=== PATIENT | male | born 1930 | race Caucasian/White ===

== ENCOUNTER 2017-08-25 20:23 | Emergency (ER) | payer MEDICARE ==
[2017-08-25 20:27] VITALS: BP 171/102
[2017-08-25] MEDS ORDERED: Sodium Chloride 0.9% 10 ML Syringe FLUSH PRN (20:43)
--- NOTE | 2017-08-25 20:51 | EDM.PDOC ---
ED HPI GENERAL MEDICAL PROBLEM - General Chief Complaint: Genitourinary Problem Stated Complaint: GROIN PAIN-KILLDEER Time Seen by Provider: 08/25/17 20:34 Source of Information: Reports: Patient History Limitations: Reports: No Limitations - History of Present Illness INITIAL COMMENTS - FREE TEXT/NARRATIVE: Patient is 87-year-old male who presents to the ED complaining of pain to the suprapubic region that radiates into his left groin and down his left leg. States it started approximately 4 days ago and has progressively gotten worse. In addition developed burning sensation with urination. Increased frequency, decrease amount, and a sensation of incomplete emptying of his bladder. Pain to the left leg described as sharp in nature, constant, improved with weightbearing and ambulation. Patient has no history of back issues in the past. He has no history of peripheral vascular disease. Patient does not smoke or utilize alcohol. He does have a history of prostate cancer with prostatectomy. Denies any fever, chills, nausea/vomiting, chest pain, shortness of breath, diarrhea, constipation, increased flatulence, or any additional complaints. Past medical history includes hypertension, and prostate cancer Current medications include lisinopril. Groin Pain Score (Numeric/FACES): 6 - Related Data Allergies Allergy/AdvReac Type Severity Reaction Status Date / Time egg Allergy Swelling Verified 08/25/17 20:28 Influenza Virus Vaccines Allergy Swelling Verified 08/25/17 20:29 Milk Containing Products Allergy Swelling Verified 08/25/17 20:28 Home Meds: Home Meds Lisinopril/Hydrochlorothiazide [Lisinopril-Hctz 10-12.5 mg Tab] 1 tab PO DAILY 08/25/17 [History] Past Medical History Cardiovascular History: Reports: Hypertension Oncologic (Cancer) History: Reports: Prostate - Past Surgical History Male Surgical History: Reports: Prostatectomy Social & Family History - Family History Respiratory: Reports: Other (See Below) Other Respiratory Family Hisory: father from pneumonia Neurological: Reports: CVA - Tobacco Use Smoking Status *Q: Never Smoker Second Hand Smoke Exposure: No - Caffeine Use Caffeine Use: Reports: None - Recreational Drug Use Recreational Drug Use: No ED ROS GENERAL - Review of Systems Review Of Systems: See Below Constitutional: Denies: Fever, Chills, Decreased Appetite Respiratory: Denies: Shortness of Breath, Cough, Sputum Cardiovascular: Denies: Chest Pain, Dyspnea on Exertion, Palpitations GI/Abdominal: Reports: Abdominal Pain. Denies: Constipation, Diarrhea, Nausea, Vomiting : Reports: Dysuria, Frequency, Pain, Urgency, Urinary Retention. Denies: Discharge, Flank Pain, Hematuria Musculoskeletal: Reports: Leg Pain (left ankle and posterior calf). Denies: Back Pain Skin: Reports: No Symptoms Neurological: Reports: No Symptoms ED EXAM, GI/ABD - Physical Exam Exam: See Below Exam Limited By: No Limitations General Appearance: Alert, WD/WN, No Apparent Distress Ears: Hearing Grossly Normal Nose: Normal Inspection, Other (oral mucosa is moist) Throat/Mouth: Normal Voice, No Airway Compromise Neck: Normal Inspection, Supple Respiratory/Chest: No Respiratory Distress, Lungs Clear, Normal Breath Sounds, Chest Non-Tender Cardiovascular: Normal Peripheral Pulses, Regular Rate, Rhythm GI/Abdominal Exam: Normal Bowel Sounds, No Organomegaly, Distended, Tender ( suprapubic region) (Male) Exam: Deferred (No pain to penis and testicles) Rectal (Males) Exam: Deferred Back Exam: Normal Inspection Extremities: Normal Inspection, Normal Range of Motion, Non-Tender, No Pedal Edema, Normal Capillary Refill Neurological: Alert, Oriented, CN II-XII Intact, Normal Cognition, No Motor/ Sensory Deficits Psychiatric: Normal Affect, Normal Mood Skin Exam: Warm, Dry, Intact, Normal Color Course - Vital Signs Last Recorded V/S: Last Vital Signs Temp 97.5 F 08/25/17 20:24 Pulse 63 08/25/17 20:24 Resp 18 08/25/17 20:24 BP 171/102 H 08/25/17 20:24 Pulse Ox 99 08/25/17 20:24 - Orders/Labs/Meds Labs: Laboratory Tests 08/25/17 08/25/17 08/25/17 Range/Units 21:04 21:07 21:07 WBC 12.43 H (4.23-9.07) K/mm3 RBC 4.52 L (4.63-6.08) M/mm3 Hgb 13.5 L (13.7-17.5) gm/L Hct 39.2 L (40.1-51.0) % MCV 86.7 (79.0-92.2) fl MCH 29.9 (25.7-32.2) pg MCHC 34.4 (32.2-35.5) g/dl RDW Std Deviation 45.1 H (35.1-43.9) fL Plt Count 210 (163-337) K/mm3 MPV 9.3 L (9.4-12.3) fl Neut % (Auto) 85.1 H (34.0-67.9) % Lymph % (Auto) 7.2 L (21.8-53.1) % [place] % (Auto) 6.4 (5.3-12.2) % Eos % (Auto) 0.6 L (0.8-7.0) Baso % (Auto) 0.4 (0.1-1.2) % Neut # (Auto) 10.58 H (1.78-5.38) K/mm3 Lymph # (Auto) 0.90 L (1.32-3.57) K/mm3 Dillon # (Auto) 0.79 (0.30-0.82) K/mm3 Eos # (Auto) 0.07 (0.04-0.54) K/mm3 Baso # (Auto) 0.05 (0.01-0.08) K/mm3 Manual Slide Review Normal smear Sodium 142 (136-145) mEq/L Potassium 3.8 (3.5-5.1) mEq/L Chloride 105 (98-107) mEq/L Carbon Dioxide 25 (21-32) mEq/L Anion Gap 15.8 H (5-15) BUN 23 H (7-18) mg/dL Creatinine 1.5 H (0.7-1.3) mg/dL Est Cr Clr Drug Dosing 31.32 mL/min Estimated GFR (MDRD) 44 (>60) mL/min BUN/Creatinine Ratio 15.3 (14-18) Glucose 123 H (83-115) mg/dL Calcium 9.1 (8.5-10.1) mg/dL Total Bilirubin 0.8 (0.2-1.0) mg/dL AST 30 (15-37) U/L ALT 37 (16-63) U/L Alkaline Phosphatase 67 (46-116) U/L C-Reactive Protein 0.6 (<1.0) mg/dL Total Protein 7.2 (6.4-8.2) g/dl Albumin 3.8 (3.4-5.0) g/dl Globulin 3.4 gm/dL Albumin/Globulin Ratio 1.1 (1-2) PSA Screen (0.0-4.0) ng/mL Urine Color Yellow (Yellow) Urine Appearance Clear (Clear) Urine pH 6.0 (5.0-8.0) Ur Specific [place] 1.020 (1.005-1.030) Urine Protein Negative (Negative) Urine Glucose (UA) Negative (Negative) Urine Ketones Negative (Negative) Urine Occult Blood Trace-intact H (Negative) Urine Nitrite Negative (Negative) Urine Bilirubin Negative (Negative) Urine Urobilinogen 0.2 (0.2-1.0) Ur Leukocyte Esterase Negative (Negative) Urine RBC 0-5 (0-5) /hpf Urine WBC 0-5 (0-5) /hpf Ur Epithelial Cells Not seen (0-5) /hpf Urine Bacteria Not seen (FEW) /hpf Urine Mucus Not seen (FEW) /hpf 08/25/17 Range/Units 22:16 WBC (4.23-9.07) K/mm3 RBC (4.63-6.08) M/mm3 Hgb (13.7-17.5) gm/L Hct (40.1-51.0) % MCV (79.0-92.2) fl MCH (25.7-32.2) pg MCHC (32.2-35.5) g/dl RDW Std Deviation (35.1-43.9) fL Plt Count (163-337) K/mm3 MPV (9.4-12.3) fl Neut % (Auto) (34.0-67.9) % Lymph % (Auto) (21.8-53.1) % [place] % (Auto) (5.3-12.2) % Eos % (Auto) (0.8-7.0) Baso % (Auto) (0.1-1.2) % Neut # (Auto) (1.78-5.38) K/mm3 Lymph # (Auto) (1.32-3.57) K/mm3 Dillon # (Auto) (0.30-0.82) K/mm3 Eos # (Auto) (0.04-0.54) K/mm3 Baso # (Auto) (0.01-0.08) K/mm3 Manual Slide Review Sodium (136-145) mEq/L Potassium (3.5-5.1) mEq/L Chloride (98-107) mEq/L Carbon Dioxide (21-32) mEq/L Anion Gap (5-15) BUN (7-18) mg/dL Creatinine (0.7-1.3) mg/dL Est Cr Clr Drug Dosing mL/min Estimated GFR (MDRD) (>60) mL/min BUN/Creatinine Ratio (14-18) Glucose (83-115) mg/dL Calcium (8.5-10.1) mg/dL Total Bilirubin (0.2-1.0) mg/dL AST (15-37) U/L ALT (16-63) U/L Alkaline Phosphatase (46-116) U/L C-Reactive Protein (<1.0) mg/dL Total Protein (6.4-8.2) g/dl Albumin (3.4-5.0) g/dl Globulin gm/dL Albumin/Globulin Ratio (1-2) PSA Screen 71.9 H (0.0-4.0) ng/mL Urine Color (Yellow) Urine Appearance (Clear) Urine pH (5.0-8.0) Ur Specific [place] (1.005-1.030) Urine Protein (Negative) Urine Glucose (UA) (Negative) Urine Ketones (Negative) Urine Occult Blood (Negative) Urine Nitrite (Negative) Urine Bilirubin (Negative) Urine Urobilinogen (0.2-1.0) Ur Leukocyte Esterase (Negative) Urine RBC (0-5) /hpf Urine WBC (0-5) /hpf Ur Epithelial Cells (0-5) /hpf Urine Bacteria (FEW) /hpf Urine Mucus (FEW) /hpf Meds: Medications Discontinued Medications Generic Name Dose Route Start Last Admin Trade Name Freq PRN Reason Stop Dose Admin Belladonna Alkaloids/Opium 1 supp 08/25/17 22:49 08/25/17 22:54 B & O Supprettes No. 15a RECTAL 08/25/17 22:50 1 supp ONETIME STA Administration Levofloxacin 500 mg 08/25/17 22:15 08/25/17 22:38 Levaquin PO 08/25/17 22:16 500 mg ONETIME ONE Administration Sodium Chloride 10 ml 08/25/17 20:43 08/25/17 21:05 Saline Flush FLUSH 10 ml ASDIRECTED PRN Administration Keep Vein Open - Re-Assessments/Exams Free Text/Narrative Re-Assessment/Exam: IV will be established. Initial labs and studies include CBC, chem 14, CRP, UA, 2 view of the abdomen, and bladder scan. Bladder scan came back greater than 900 mls present. Finnegan catheter with leg bag order. Labs reviewed white blood cell count 12.43, hemoglobin 13.5, neutrophil percentage 75.1, neutrophil number is 10.58, sodium 142, potassium 3.8, CO2 25, AG 15.8, creatinine 1.5, CRP 0.6, UA was negative for infection. Two view of the abdomen revealed no concerning findings. Non specific air and stool pattern. Final interpretation is pending. Unclear why the patient had sudden urinary retention. He does have a history of prostate cancer with prostatectomy. He has no pain at this time. Will discharge home with plans of having patient followup with his urologists first part of this coming week. They will need to call any make an appt Monday. Due to the trauma of insertion of finnegan catheter ordered levaquin 500 mg PO. Unclear if patient has neurogenic bladder or new obstruction. PSA has been ordered. 08/26/17 23:12 PSA reviewed 71. Departure - Departure Time of Disposition: 22:15 Disposition: Home, Self-Care 01 Condition: Good Clinical Impression: Acute urinary retention - Discharge Information Instructions: Finneagn Catheter Care, Adult Referrals: PCP,Unknown [Ordering Only Provider] - Forms: ED Department Discharge Additional Instructions: Leave the Finnegan in place until evaluated by your urologist the first part of next week. Call this coming Monday to schedule an appointment. Push the fluids. Return to ED if he have any further issues.
[2017-08-25] MEDS ORDERED: Levofloxacin 500 MG Tab PO ONE (22:15)
[2017-08-25] MEDS ORDERED: Belladonna Alkaloids/Opium 16.2-30 MG Supp RECTAL STA (22:49)
--- NOTE | 2017-08-27 18:06 | CR ---
Abdomen: Supine and upright views of the abdomen were obtained. Comparison: No previous abdominal imaging. Surgical clips are seen within the pelvis. Joint space narrowing is noted within both hips. Degenerative change is scattered within the spine. Bony structures are osteopenic. Bowel gas pattern is normal. No free air is seen. Slight vascular calcification is seen. Torturous abdominal aorta is seen. Small hiatal hernia is noted. Impression: 1. Incidental findings. Nothing acute is appreciated. Diagnostic code #2
== END 2017-08-25 23:45 | disposition home or self-care (01) ==
LOC: JD.ED 20:23
DX: R33.9 Retention of urine, unspecified (principal); I10 Essential (primary) hypertension; Z98.890 Other specified postprocedural states; Z85.46 Personal history of malignant neoplasm of prostate; Z79.899 Other long term (current) drug therapy; Z91.012 Allergy to eggs; Z91.011 Allergy to milk products; Z88.7 Allergy status to serum and vaccine
CPT/HCPCS: 36415; 51702; 51798; 74020; 80053; 81001; 85025; 86140; 99284; A9270; G0103; J7050; 99283